=== PATIENT | female | born 1985 | race Caucasian/White ===

== ENCOUNTER 2016-06-20 09:41 | Observation (INO) | payer OTHER ==
[2016-06-19 11:37] VITALS: BMI 28.2
[~2016-06-20] VITALS: Ht 160 cm; Wt 69.0 kg
[2016-06-20] VITALS (25 sets, daily range): BP systolic 92–118; BP diastolic 44–78; PULSE 62–102; RESP 16–18; Ht 160 cm; Wt 69.0 kg
[~2016-06-20 09:41] MED LIST: ACET500C5 PO; PREN-39 PO
[2016-06-20 11:24] LABS: ADD UMIC NO; URINE BILIRUBIN (Dip) NEGATIVE (NEGATIVE); URINE BLOOD (Dip) NEGATIVE (NEGATIVE); URINE COLOR LT. YELLOW (YELLOW); URINE GLUCOSE (Dip) NEGATIVE (NEGATIVE); URINE KETONES (Dip) NEGATIVE (NEGATIVE); URINE LEUKOCYTE ESTERASE (Dip) NEGATIVE (NEGATIVE); URINE NITRITE (Dip) NEGATIVE (NEGATIVE); URINE TOTAL PROTEIN (Dip) NEGATIVE (NEGATIVE); URINE UROBILINOGEN (Dip) 0.2 E.U./dL (0.1-1.0)
[2016-06-20 11:48] LABS: BASOPHILS % 0.5 % (0.0-2.0); EOSINOPHILS # 0.1 10^3/ul (0.0-0.5); EOSINOPHILS % 1.4 % (0.0-7.0); HEMATOCRIT 39.4 % (37.0-47.0); HEMOGLOBIN 13.5 g/dl (12.0-16.0); LYMPHOCYTES # 2.1 10^3/ul (0.8-2.9); LYMPHOCYTES % 25.9 % (15.0-51.0); MEAN CORPUSCULAR HEMOGLOBIN 30.6 pg (29.0-33.0); MEAN CORPUSCULAR HGB CONC 34.2 g/dl (32.0-37.0); MEAN CORPUSCULAR VOLUME 89.5 fl (82.0-101.0); MEAN PLATELET VOLUME 7.4 fl (7.4-10.4); MONOCYTE # 0.4 10^3/ul (0.3-0.9); MONOCYTES % 5.1 % (0.0-11.0); NEUTROPHIL # 5.4 10^3/ul (1.6-7.5); NEUTROPHILS % 67.1 % (39.0-77.0); PLATELET COUNT 330 10^3/UL (140-440); RED CELL DISTRIBUTION WIDTH 13.1 % (11.5-14.5)
[2016-06-20 11:54] LABS: ALBUMIN 3.7 g/dl (3.3-4.9)
[2016-06-20 11:57] LABS: TOTAL PROTEIN 7.2 g/dl (6.1-8.1)
[2016-06-20 12:01] LABS: ALBUMIN/GLOBULIN RATIO 1.05; CALCIUM 8.6 mg/dl (8.4-10.2); CONDITION 1; CREATININE 0.5 mg/dl (0.44-1.00); POTASSIUM 3.6 mmol/L (3.5-5.1)
[2016-06-20 12:02] LABS: INR 1.01; PROTIME 13.3 Sec (12.2-14.2)
[2016-06-20 12:03] LABS: PARTIAL THROMBOPLASTIN TIME 29.4 Sec (25.0-35.0)
[2016-06-20] MEDS ORDERED: BUPIVACAINE 0.25%/EPI (SDV) 30 ML INJ ONE (12:26)
[2016-06-20] MEDS ORDERED: FENTAnyl 50 MCG/ML VIAL ONE (12:30)
[2016-06-20] MEDS ORDERED: PROPOFOL 40 ML ONE (13:10)
[2016-06-20] MEDS ORDERED: ROPIVACAINE 0.5 % 30 ML VIAL ONE (13:10)
[2016-06-20] MEDS ORDERED: ROCURONIUM 50 MG INJ ONE (13:10)
[2016-06-20] MEDS ORDERED: NEOSTIGMINE 3 MG/3 ML SYRINGE ONE (13:10)
[2016-06-20] MEDS ORDERED: GLYCOPYRROLATE 0.4 MG INJ ONE (13:10)
[2016-06-20] MEDS ORDERED: CEFAZOLIN 1 GM INJ ONE (13:10)
[2016-06-20] MEDS ORDERED: SUCCINYLCHOLINE CHLORIDE 100 MG/5 ML SYG IV ONE (13:10)
[2016-06-20] MEDS ORDERED: LIDOCAINE 2% (SDV) 5 ML INJ ONE (13:10)
--- NOTE | 2016-06-20 13:26 | HP ---
DATE OF ADMISSION: 06/20/2016 HISTORY OF PRESENT ILLNESS: This is a 30-year-old female, 2, para 2, history of 2 previous C-sections, requesting voluntary sterilization, bilateral tubal ligation, admitted to [facility] to undergo mini laparotomy, bilateral tubal ligation. PAST MEDICAL HISTORY: Menarche at age 11, regular period, 28 days to 32 days. History of 2 previou s pregnancies with 2 sections. No other surgery or hospitalization for any other medical o r surgical condition. ALLERGIES: SHE IS NOT ALLERGIC TO ANY KNOWN MEDICATION. SOCIAL HISTORY: Does not smoke or drink. FAMILY HISTORY: Not remarkable. REVIEW OF SYSTEMS: Within normal. PHYSICAL EXAMINATION: VITAL SIGNS: Height 5 feet 2 inches, weight 157 pounds with a blood pressure 108/83, pulse of 73, r espirations 18, and temperature 98.4. HEAD, EARS, NOSE, AND THROAT: Negative. NECK: Supple. No thyromegaly. LUNGS: Clear to P and A. HEART: Normal sinus rhythm, no murmur. BREASTS: Status compatible with state of the . No abnormal palpable mass. No nipple retr action or discharge. No axillary adenopathy, no supraclavicular adenopathy. ABDOMEN: Soft. No organomegaly. Scar of the . PELVIC: External genitalia normal. Vagina normal. Cervix small and nulliparous, uterus top normal size. Adnexa not palpable. EXTREMITIES: No edema, no varicosities. IMPRESSION AND PLAN: The patient has requested bilateral tubal ligation. She is aware of the failu re rate of tubal ligation, increased risk of ectopic , complication of the surgery, includi ng bowel or bladder injury, infection, hemorrhage, hematoma, wound infection, and she is willing to go ahead with this procedure. Dictated By: JULISSA MONSALVE MD HF/NTS Conf#: [id number] DID#: [id number]
[2016-06-20] MEDS ORDERED: BUPIVACAINE 0.25%/EPI (SDV) 30 ML INJ INJ ONE (13:37)
--- NOTE | 2016-06-20 14:01 | OPPN ---
Date/Time of Note Date/Time of Note DATE: 06/20/16 TIME: 13:57 Operative/Procedure Note request for bilateral tubal ligation Pre-Operative Diagnosis same as above Post-Operative Diagnosis same as above Procedure mini laparotomy bilateral tubal ligation Surgeon: JULISSA MONSALVE MD Diamond Powder Technician: TAN ALTAMIRANO MD Anesthesiologist: SHAI LUQUE Implants/Grafts: Not applicable Estimated blood loss: 0 - 10 ml's Drains: Not applicable Anesthesia type: general JULISSA MONSALVE MD Jun 20, 2016 14:01
[2016-06-20] MEDS ORDERED: MEPERIDINE 25 MG INJ ONE (14:11)
[2016-06-20] MEDS ORDERED: HYDROmorphONE 2 MG/ML SYG ONE (14:11)
[2016-06-20] MEDS ORDERED: ONDANSETRON 4 MG INJ ONE (14:11)
[2016-06-20] MEDS ORDERED: HYDROmorphONE (0.2 MG/ML) 10ML SYG IV ONE (14:12)
[2016-06-20] MEDS ORDERED: ONDANSETRON 4 MG INJ IV PRN ×2 (14:30→17:00)
[2016-06-20] MEDS ORDERED: MEPERIDINE 25 MG INJ IV PRN (14:30)
[2016-06-20] MEDS ORDERED: METOCLOPRAMIDE 10 MG INJ IV PRN (14:30)
[2016-06-20] MEDS ORDERED: FENTAnyl 50 MCG/ML VIAL IV PRN ×2 (14:30)
[2016-06-20] MEDS ORDERED: HYDROmorphONE (0.2 MG/ML) 10ML SYG IV PRN ×2 (14:30)
[2016-06-20] MEDS ORDERED: DIPHENHYDRAMINE 50 MG INJ IV PRN (14:30)
[2016-06-20] MEDS: HYDROmorphONE (0.2 MG/ML) 10ML SYG IV PRN ×3 (14:40→15:02)
[2016-06-20] MEDS ORDERED: HYDROCODONE/APAP (5/325) TAB ONE (15:08)
[2016-06-20] MEDS ORDERED: HYDROCODONE/APAP (5/325) TAB PO ONE (15:30)
--- NOTE | 2016-06-20 16:14 | OPR ---
DATE OF OPERATION: 06/20/2016 PREOPERATIVE DIAGNOSES: Request for voluntary sterilization, bilateral tubal ligation. POSTOPERATIVE DIAGNOSIS: Request for voluntary sterilization, bilateral tubal ligation. PROCEDURE: Minilaparotomy, bilateral tubal ligation. SURGEON: Julissa Monsalve MD MANAGER ENVIRONMENTAL AFFAIRS: Yazmin Mak MD ANESTHESIA: General. ANESTHESIOLOGIST: Dr. Hooks DETAILS OF THE PROCEDURE: Under satisfactory general anesthesia, the patient was prepped and draped and placed in supine position. Small midline Pfannenstiel incision 2 inches made. Old scar was re moved and incision carried through the subcutaneous tissue. Bleeders were brought under control wit h electrocautery. Fascia incised to the length of the incision. Rectus muscle divided in midline. Peritoneum exposed, entered through a transverse incision. Exploration of abdomen showed normal si ze uterus, normal appearing both tubes and ovaries. Right fallopian tube was retrieved by a Julissa , and a loop was made. Suture material used, #0 plain catgut, and was reinforced with the same sutu re material. The top of the loop 3/4 of inch was excised. The cut end of the tube was cauterized a nd the specimen submitted for the pathology. The same procedure performed for the opposite side. A t this point, peritoneal cavity irrigated with sterile water. Sponge, needle, and instrument report ed to be correct. Peritoneum closed with 2-0 chromic catgut continuously. Rectus muscle approximat ed with 2 interrupted 2-0 chromic catgut. Fascia closed with 0 PDS in a continuous fashion. Subcut aneous tissue approximated with 2-0 Vicryl. The skin was closed with 3-0 Monocryl in subcuticular f ashion. The patient tolerated procedure well and was transferred to recovery room in good condition . Dictated By: JULISSA MONSALVE MD HF/NTS Conf#: [id number] DID#: [id number]
[2016-06-20] MEDS ORDERED: KETOROLAC 30 MG INJ IV PRN (16:30)
[2016-06-20] MEDS ORDERED: BUTORPHANOL 2 MG INJ IV PRN (16:30)
[2016-06-20] MEDS ORDERED: SOD CHLORIDE 0.9% 1,000 ML IV SCH (16:30)
[2016-06-20] MEDS: DEXTROSE 5%-LR 1,000 ML IV SCH (17:12)
[2016-06-20] MEDS: OXYCODONE/ACETAMINOPHEN (5/325) TAB PO PRN ×2 (18:23→22:29)
[2016-06-21] MEDS: OXYCODONE/ACETAMINOPHEN (5/325) TAB PO PRN (01:53)
[2016-06-21] MEDS: DEXTROSE 5%-LR 1,000 ML IV SCH ×2 (04:39→05:27)
[2016-06-21 08:27] VITALS: BP 113/69; RESP 18
--- NOTE | 2016-06-21 11:58 | PD.PPDC ---
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
[2016-06-21] MEDS ORDERED: IBUPROFEN 600 MG TAB PO ONE (13:00)
== END 2016-06-21 14:44 | disposition home or self-care (01) ==
LOC: SDS 09:41 → MS1 16:02
PROVIDERS: ADMIT Obstetrics & Gynecology; ATTEND Obstetrics & Gynecology
DX: Z30.2 Encounter for sterilization (principal)
CPT/HCPCS: 58600; 80053; 81003; 84703; 85025; 85610; 85730; 86850; 86900; 86901; 88302; J0330; J0690; J1170; J1885; J2175; J2405; J2710; J2795; J3010; J7121; Z7500; Z7512; Z7610; G0378